=== PATIENT | male | born 1965 | race Caucasian/White ===

== ENCOUNTER 2016-08-23 07:59 | Emergency (ER) | payer SELFPAY ==
[~2016-08-23] VITALS: Ht 177.8 cm; Wt 84.7 kg
[~2016-08-23 07:59] MED LIST: LEVAQUIN500 MG PO; PYRIDIUM200 MG PO
[2016-08-23 08:01] VITALS: BP 121/81
[2016-08-23 10:07] LABS: HEMATOCRIT 42.9 % (38.0-50.0); MCH 33.1 PG (29.0-34.0); MCHC 35.7 G/DL (30.0-36.0); MCV 92.9 FL (86-99); MEAN PLAT.VOLUME 8.9 uM^3 (9.0-12.4); PLATELET COUNT 292 K/uL (156-360); RBC DIS.WIDTH-CV 11.4 % (11.8-14.6); RBC DIS.WIDTH-SD 38.5 % (39-53); RED BLOOD COUNT 4.62 M/uL (4.00-5.50); WHITE BLOOD COUNT 11.2 K/uL (4.1-10.2)
[2016-08-23 10:51] LABS: INTERNAL CONTROL VALID? YES; MONOSPOT (MONONUCLEOSIS SEROL) NEGATIVE
[2016-08-23 11:03] LABS: ERTH.SED.RATE 25 MM/HR (0-20)
[2016-08-23] MEDS ORDERED: VIBRAMYCIN100 MG PO (11:19)
[2016-08-23] MEDS ORDERED: NAPROSYN500 MG PO (11:19)
[2016-08-24 12:03] LABS: LYME DISEASE SEROLOGY SCREEN NEGATIVE (NEGATIVE)
== END 2016-08-23 13:00 | disposition home or self-care (01) ==
LOC: EME 07:59
PROVIDERS: Nurse Practitioner Family
DX: M25.50 Pain in unspecified joint (principal); F17.200 Nicotine dependence, unspecified, uncomplicated
CPT/HCPCS: 85027; 85651; 86140; 86308; 86618; 99281; 99283; J1885

== ENCOUNTER 2016-09-27 10:37 | Emergency (ER) | payer OTHER ==
[~2016-09-27] VITALS: Ht 175.3 cm; Wt 84.7 kg
[~2016-09-27 10:37] MED LIST changes: +NAPROSYN500 MG PO; +VIBRAMYCIN100 MG PO
[2016-09-27 10:56] VITALS: BP 128/70
[2016-09-27] MEDS ORDERED: TRAMADOL HCL50 MG PO (12:06)
== END 2016-09-27 12:11 | disposition home or self-care (01) ==
LOC: EME 10:37
DX: M25.50 Pain in unspecified joint (principal); M25.462 Effusion, left knee; F17.200 Nicotine dependence, unspecified, uncomplicated
CPT/HCPCS: 99281; 99284